=== PATIENT | male | born 1940 | race Caucasian/White ===

== ENCOUNTER 2017-10-01 09:48 | Emergency (ER) | payer MEDICARE ==
[2017-10-01] MEDS ORDERED: Morphine INJ* 4 MG/ML 1 ML SYRINGE (NEW SYRINGE VERSION) IV ONE (10:22)
[2017-10-01] MEDS ORDERED: Ondansetron INJ* 2 MG/ML VIAL IV ONE (10:22)
[2017-10-01] MEDS ORDERED: Albuterol/Ipratropium NEB.SOL* Albuterol 2.5 MG/Ipratropium 0.5 MG 3 ML INH ONE (10:23)
[2017-10-01] MEDS ORDERED: methylPREDNISolone 125 MG* 2 ML VIAL IV ONE (10:24)
--- NOTE | 2017-10-01 10:27 | RAD ---
HISTORY: Chest pain, shortness of breath COMPARISONS: September 05, 2016 VIEWS: 1: frontal portable view of the chest at 10:15 AM FINDINGS: LINES AND TUBES: None. CARDIOMEDIASTINAL SILHOUETTE: The cardiomediastinal silhouette is normal for portable technique. PLEURA: The costophrenic angles are sharp. No pleural abnormalities are noted. LUNG PARENCHYMA: There is stable linear pleuroparenchymal scarring of the left lung base. ABDOMEN: The upper abdomen is clear. There is no subphrenic gas. BONES AND SOFT TISSUES: Mild degenerative changes are noted. IMPRESSION: NO ACTIVE CARDIOPULMONARY DISEASE.
[2017-10-01 10:43] LABS: Hematocrit 42 % (42-52); Hemoglobin 14.2 g/dl (14.0-18.0); Mean Corpuscular HGB Conc 34 g/dl (31-36); Mean Corpuscular Hemoglobin 31 pg (27-31); Mean Corpuscular Volume 92 fL (80-94); Mean Platelet Volume 9.8 um3 (7.4-10.4); Platelet Count 238 10^3/ul (150-450); Red Blood Count 4.59 10^6/ul (4.0-5.4); Red Cell Distribution Width 13 % (10.5-15); White Blood Count 9.1 10^3/ul (3.5-10.8)
[2017-10-01] MEDS ORDERED: Albuterol/Ipratropium NEB.SOL* Albuterol 2.5 MG/Ipratropium 0.5 MG 3 ML ONE (10:44)
[2017-10-01 10:53] LABS: INR 0.79 (0.77-1.02)
[2017-10-01 11:04] LABS: EGFR Non-African American 62.5 (>60)
[2017-10-01 11:43] LABS: ABS Basophils 0 10^3/ul (0-0.2); ABS Eosinophils 0.4 10^3/ul (0-0.6); ABS Lymphocytes 0.7 10^3/ul (1.0-4.8); ABS Monocytes 1.1 10^3/ul (0-0.8); ABS Neutrophils 6.9 10^3/ul (1.5-7.7); ABS Nucleated RBC 0 10^3/ul; Eosinophil % 3.9 % (0-6); Lymphocyte % 7.9 % (25-47); Nucleated Red Blood Cells % 0.1
[2017-10-01] MEDS ORDERED: Iohexol 300* (CONTRAST) 10 ML SDV IV ONE (12:22)
--- NOTE | 2017-10-01 15:41 | RAD ---
INDICATION: Left lower quadrant tenderness. Diverticulitis/diverticulosis . COMPARISON: PET scan December 23, 2015 TECHNIQUE: Axial source images were obtained from the hemidiaphragms to the symphysis pubis following administration of oral and intravenous contrast. 94 mL Omnipaque 300 was utilized. Coronal and sagittal reconstructed images were acquired. Lung bases: There is basilar parenchymal scarring or atelectasis, unchanged. Liver: The liver is normal in size. There are no masses. There is no ductal dilatation. Gallbladder: There are calcified gallstones. There is no evidence of wall thickening or pericholecystic fluid. Spleen: The spleen is normal in size. There are no masses. Pancreas: There is no focal pancreatic mass or ductal dilatation. Adrenal glands: There is no evidence of adrenal mass. Kidneys: The kidneys are normal in size and position. There are prompt nephrograms and there is prompt excretion bilaterally. There are no renal parenchymal masses. There is no evidence of nephrolithiasis. Adenopathy: There is no evidence of adenopathy by size criteria. Fluid collections: There are no free or localized fluid collections. Vessels:There are atherosclerotic changes involving the aorta and iliac vessels. There is no focal aneurysm. The IVC appears normal. GI tract: There is a small to moderate sized hiatal hernia. The stomach and small bowel are otherwise unremarkable. The terminal ileum is normal. The appendix is visualized and appears normal. There is stool in the right colon. There are scant diverticula of the sigmoid and descending colon. There are no CT findings of acute diverticulitis. There are are no findings of obstruction are perforation. Pelvic organs: The prostate and seminal vesicles appear normal Bladder: There are no bladder masses. Abdominal and pelvic soft tissues: The extraperitoneal abdominal and pelvic soft tissues appear normal.. Osseous structures: There are no acute osseous findings. There is bone harvesting from the left iliac bone and there is evidence of prior lumbar fusion, unchanged. Other: None IMPRESSION: 1. Bibasilar scarring or atelectasis, unchanged. 2. Cholelithiasis. 3. Small to moderate-sized hiatal hernia. 4. Normal appendix. 5. Scattered diverticula. No CT evidence of acute diverticulitis.
[2017-10-01 15:46] LABS: Urine Appearance Clear; Urine Blood Negative (Negative); Urine Color Straw; Urine Ketones Negative (Negative); Urine Protein Negative (Negative); Urine Specific Gravity 1.005 (1.010-1.030); Urine Urobilinogen Negative (Negative)
[2017-10-01] MEDS ORDERED: Azithromycin TAB* 250 MG PO ONE (16:07)
--- NOTE | 2017-10-01 16:23 | ED ---
Mian Palm Julia, scribed for Timothy Freeman on 10/01/17 at 1022 . Abdominal Pain/Male - HPI Summary HPI Summary: This patient is a 77 year old M presenting to [facility] accompanied by his with a chief complaint of diffuse worsening abdominal, chest, and back pain since last night. Patient describes pain as spasms radiating from his shoulders into his abdomen. Patient reports SOB, cough, constipation, and dehydration. Patient denies diarrhea and fever. The patient rates the pain 8/10 in severity. Patient believes PNA may be returning. Patient is on at home O2. - History of Current Complaint Chief Complaint: EDAbdPain Stated Complaint: ABD PAIN, SOB Time Seen by Provider: 10/01/17 10:12 Hx Obtained From: Patient Onset/Duration: Sudden Onset, Lasting Hours Timing: Constant Pain Intensity: 8 Pain Scale Used: 0-10 Numeric Location: Diffuse Radiates: Yes Radiates to: Back, Flank, Chest, Other - shoulders Associated Signs And Symptoms: Positive: Cough, Chest Pain, Back Pain, Constipation. Negative: Fever, Diarrhea Similar Episode/Dx As:: PNA - Allergies/Home Medications Allergies/Adverse Reactions: Allergies Allergy/AdvReac Type Severity Reaction Status Date / Time No Known Allergies Allergy Verified 02/14/16 08:19 PMH/Surg Hx/FS Hx/Imm Hx Endocrine/Hematology History: Denies: Hx Diabetes Cardiovascular History: Denies: Hx Congestive Heart Failure, Hx Hypertension Respiratory History: Reports: Hx Asthma, Hx Chronic Obstructive Pulmonary Disease (COPD) - pt states he has had it for 10 years, Hx Pneumonia, Other Respiratory Problems/Disorders - HOME NEBULIZER GI History: Reports: Other GI Disorders - cdiff History: Reports: Hx Benign Prostatic Hyperplasia - has been taking flomax for over 10 years Denies: Hx Renal Disease Sensory History: Reports: Hx Contacts or Glasses, Hx Hearing Problem Opthamlomology History: Reports: Hx Contacts or Glasses Neurological History: Denies: Hx Dementia, Hx Developmental Delay, Hx Headaches, Hx Migraine, Hx Nerve Disease, Hx Seizures, Hx Spinal Cord Injury, Hx Transient Ischemic Attacks (TIA), Other Neuro Impairments/Disorders Psychiatric History: Reports: Hx Anxiety, Hx Depression - Pt states he has been feeling more depressed - Cancer History Cancer Type, Location and Year: Skin-multiple lesions Hx Chemotherapy: No - Surgical History Surgery Procedure, Year, and Place: L4-L5-S1 triple fusion approx 12 years ago in [place]. tonsillectomy Infectious Disease History: Yes Infectious Disease History: Reports: Hx Clostridium Difficile Denies: Traveled Outside the [place] in Last 30 Days - Family History Known Family History: Positive: None Family History: NON CONTRIBUTORY - Social History Alcohol Use: Daily Alcohol Amount: 1-2 beers/day Substance Use Type: Reports: None Hx Tobacco Use: Yes Smoking Status (MU): Former Smoker Type: Cigarettes, Smokeless Tobacco Amount Used/How Often: most of the time. pt states Have You Smoked in the Last Year: Yes Review of Systems Positive: Other - dehydration. Negative: Fever Positive: Chest Pain Positive: Shortness Of Breath, Cough Gastrointestinal: Other - constipation Negative: Diarrhea Positive: flank pain Positive: Myalgia - shoulder pain and back pain All Other Systems Reviewed And Are Negative: Yes Physical Exam - Summary Physical Exam Summary: Appearance: Well appearing, no pain distress Skin: warm, dry, reflects adequate perfusion Head/face: normal Eyes: EOMI, GEOVANY ENT: normal Neck: supple, non-tender Respiratory: CTA, breath sounds present Cardiovascular: RRR, pulses symmetrical Abdomen: soft, diffuse abdominal tenderness Bowel: present Musculoskeletal: normal, strength/ROM intact Neuro: normal, sensory motor intact, A&Ox3 Triage Information Reviewed: Yes Vital Signs On Initial Exam: Initial Vitals Temp Pulse Resp BP Pulse Ox 98.1 F 101 28 154/76 93 10/01/17 09:52 10/01/17 09:52 10/01/17 09:52 10/01/17 09:52 10/01/17 09:52 Vital Signs Reviewed: Yes Diagnostics - Vital Signs Vital Signs Temp Pulse Resp BP Pulse Ox 10/01/17 09:52 98.1 F 101 28 154/76 93 - Laboratory Lab Results: Lab Results 10/01/17 10/01/17 10/01/17 Range/Units 10:31 10:31 10:31 WBC (3.5-10.8) 10^3/ul RBC (4.0-5.4) 10^6/ul Hgb (14.0-18.0) g/dl Hct (42-52) % MCV (80-94) fL MCH (27-31) pg MCHC (31-36) g/dl RDW (10.5-15) % Plt Count (150-450) 10^3/ul MPV (7.4-10.4) um3 Neut % (Auto) (38-83) % Lymph % (Auto) (25-47) % [place] % (Auto) (0-7) % Eos % (Auto) (0-6) % Baso % (Auto) (0-2) % Absolute Neuts (auto) (1.5-7.7) 10^3/ul Absolute Lymphs (auto) (1.0-4.8) 10^3/ul Absolute Monos (auto) (0-0.8) 10^3/ul Absolute Eos (auto) (0-0.6) 10^3/ul Absolute Basos (auto) (0-0.2) 10^3/ul Absolute Nucleated RBC 10^3/ul Nucleated RBC % INR (Anticoag Therapy) 0.79 (0.77-1.02) APTT 34.1 (26.0-36.3) seconds D-Dimer, Quantitative 210 (Less Than 230) ng/mL Patient Temperature ABG pH (7.35-7.45) ABG pH (Temp Correct) ABG pCO2 (35-45) mmHg ABG pCO2 (Temp Corrct ABG pO2 (80-100) mmHg ABG pO2 (Temp Correct ABG HCO3 (19-31) mmol/L ABG O2 Saturation (95-98) % ABG Base Excess (-2.0-2.0) Respiration Rate O2 Delivery Device Ventilator Type Vent Mode FiO2 Inspiratory Time PEEP Pressure Support Pressure Control EPAP IPAP BiPAP Sodium 135 (133-145) mmol/L Potassium 4.2 (3.5-5.0) mmol/L Chloride 102 (101-111) mmol/L Carbon Dioxide 27 (22-32) mmol/L Anion Gap 6 (2-11) mmol/L BUN 16 (6-24) mg/dL Creatinine 1.14 (0.67-1.17) mg/dL Est GFR ( Amer) 80.3 (>60) Est GFR (Non-Af Amer) 62.5 (>60) BUN/Creatinine Ratio 14.0 (8-20) Glucose 99 (70-100) mg/dL Lactic Acid (0.5-2.0) mmol/L Calcium 9.6 (8.6-10.3) mg/dL Magnesium 2.1 (1.9-2.7) mg/dL Total Bilirubin 0.80 (0.2-1.0) mg/dL AST 17 (13-39) U/L ALT 12 (7-52) U/L Alkaline Phosphatase 70 (34-104) U/L Total Creatine Kinase 63 (10-223) U/L CK-MB (CK-2) 1.9 (0.6-6.3) ng/mL Troponin I 0.00 (<0.04) ng/mL C-Reactive Protein 17.00 H (< 5.00) mg/L B-Natriuretic Peptide 36 ( - 100) pg/mL Total Protein 7.1 (6.4-8.9) g/dL Albumin 4.1 (3.2-5.2) g/dL Globulin 3.0 (2-4) g/dL Albumin/Globulin Ratio 1.4 (1-3) Lipase 14 (11.0-82.0) U/L TSH 1.98 (0.34-5.60) mcIU/mL Urine Color Urine Appearance Urine pH (5-9) Ur Specific [place] (1.010-1.030) Urine Protein (Negative) Urine Ketones (Negative) Urine Blood (Negative) Urine Nitrate (Negative) Urine Bilirubin (Negative) Urine Urobilinogen (Negative) Ur Leukocyte Esterase (Negative) Urine Glucose (Negative) Influenza A (Rapid) (Negative) Influenza B (Rapid) (Negative) 10/01/17 10/01/17 10/01/17 Range/Units 10:31 10:31 10:55 WBC 9.1 (3.5-10.8) 10^3/ul RBC 4.59 (4.0-5.4) 10^6/ul Hgb 14.2 (14.0-18.0) g/dl Hct 42 (42-52) % MCV 92 (80-94) fL MCH 31 (27-31) pg MCHC 34 (31-36) g/dl RDW 13 (10.5-15) % Plt Count 238 (150-450) 10^3/ul MPV 9.8 (7.4-10.4) um3 Neut % (Auto) 76.1 (38-83) % Lymph % (Auto) 7.9 L (25-47) % [place] % (Auto) 11.9 H (0-7) % Eos % (Auto) 3.9 (0-6) % Baso % (Auto) 0.2 (0-2) % Absolute Neuts (auto) 6.9 (1.5-7.7) 10^3/ul Absolute Lymphs (auto) 0.7 L (1.0-4.8) 10^3/ul Absolute Monos (auto) 1.1 H (0-0.8) 10^3/ul Absolute Eos (auto) 0.4 (0-0.6) 10^3/ul Absolute Basos (auto) 0 (0-0.2) 10^3/ul Absolute Nucleated RBC 0 10^3/ul Nucleated RBC % 0.1 INR (Anticoag Therapy) (0.77-1.02) APTT (26.0-36.3) seconds D-Dimer, Quantitative (Less Than 230) ng/mL Patient Temperature Not Reportable ABG pH 7.37 (7.35-7.45) ABG pH (Temp Correct) Not Reportable ABG pCO2 46 H (35-45) mmHg ABG pCO2 (Temp Corrct Not Reportable ABG pO2 99 (80-100) mmHg ABG pO2 (Temp Correct Not Reportable ABG HCO3 25.6 (19-31) mmol/L ABG O2 Saturation 99.1 H (95-98) % ABG Base Excess 0.9 (-2.0-2.0) Respiration Rate Not Reportable O2 Delivery Device nasal cannula 2lpm Ventilator Type Not Reportable Vent Mode Not Reportable FiO2 Not Reportable Inspiratory Time Not Reportable PEEP Not Reportable Pressure Support Not Reportable Pressure Control Not Reportable EPAP Not Reportable IPAP Not Reportable BiPAP Not Reportable Sodium (133-145) mmol/L Potassium (3.5-5.0) mmol/L Chloride (101-111) mmol/L Carbon Dioxide (22-32) mmol/L Anion Gap (2-11) mmol/L BUN (6-24) mg/dL Creatinine (0.67-1.17) mg/dL Est GFR ( Amer) (>60) Est GFR (Non-Af Amer) (>60) BUN/Creatinine Ratio (8-20) Glucose (70-100) mg/dL Lactic Acid 1.0 (0.5-2.0) mmol/L Calcium (8.6-10.3) mg/dL Magnesium (1.9-2.7) mg/dL Total Bilirubin (0.2-1.0) mg/dL AST (13-39) U/L ALT (7-52) U/L Alkaline Phosphatase (34-104) U/L Total Creatine Kinase (10-223) U/L CK-MB (CK-2) (0.6-6.3) ng/mL Troponin I (<0.04) ng/mL C-Reactive Protein (< 5.00) mg/L B-Natriuretic Peptide ( - 100) pg/mL Total Protein (6.4-8.9) g/dL Albumin (3.2-5.2) g/dL Globulin (2-4) g/dL Albumin/Globulin Ratio (1-3) Lipase (11.0-82.0) U/L TSH (0.34-5.60) mcIU/mL Urine Color Urine Appearance Urine pH (5-9) Ur Specific [place] (1.010-1.030) Urine Protein (Negative) Urine Ketones (Negative) Urine Blood (Negative) Urine Nitrate (Negative) Urine Bilirubin (Negative) Urine Urobilinogen (Negative) Ur Leukocyte Esterase (Negative) Urine Glucose (Negative) Influenza A (Rapid) (Negative) Influenza B (Rapid) (Negative) 10/01/17 10/01/17 Range/Units 11:45 14:54 WBC (3.5-10.8) 10^3/ul RBC (4.0-5.4) 10^6/ul Hgb (14.0-18.0) g/dl Hct (42-52) % MCV (80-94) fL MCH (27-31) pg MCHC (31-36) g/dl RDW (10.5-15) % Plt Count (150-450) 10^3/ul MPV (7.4-10.4) um3 Neut % (Auto) (38-83) % Lymph % (Auto) (25-47) % [place] % (Auto) (0-7) % Eos % (Auto) (0-6) % Baso % (Auto) (0-2) % Absolute Neuts (auto) (1.5-7.7) 10^3/ul Absolute Lymphs (auto) (1.0-4.8) 10^3/ul Absolute Monos (auto) (0-0.8) 10^3/ul Absolute Eos (auto) (0-0.6) 10^3/ul Absolute Basos (auto) (0-0.2) 10^3/ul Absolute Nucleated RBC 10^3/ul Nucleated RBC % INR (Anticoag Therapy) (0.77-1.02) APTT (26.0-36.3) seconds D-Dimer, Quantitative (Less Than 230) ng/mL Patient Temperature ABG pH (7.35-7.45) ABG pH (Temp Correct) ABG pCO2 (35-45) mmHg ABG pCO2 (Temp Corrct ABG pO2 (80-100) mmHg ABG pO2 (Temp Correct ABG HCO3 (19-31) mmol/L ABG O2 Saturation (95-98) % ABG Base Excess (-2.0-2.0) Respiration Rate O2 Delivery Device Ventilator Type Vent Mode FiO2 Inspiratory Time PEEP Pressure Support Pressure Control EPAP IPAP BiPAP Sodium (133-145) mmol/L Potassium (3.5-5.0) mmol/L Chloride (101-111) mmol/L Carbon Dioxide (22-32) mmol/L Anion Gap (2-11) mmol/L BUN (6-24) mg/dL Creatinine (0.67-1.17) mg/dL Est GFR ( Amer) (>60) Est GFR (Non-Af Amer) (>60) BUN/Creatinine Ratio (8-20) Glucose (70-100) mg/dL Lactic Acid (0.5-2.0) mmol/L Calcium (8.6-10.3) mg/dL Magnesium (1.9-2.7) mg/dL Total Bilirubin (0.2-1.0) mg/dL AST (13-39) U/L ALT (7-52) U/L Alkaline Phosphatase (34-104) U/L Total Creatine Kinase (10-223) U/L CK-MB (CK-2) (0.6-6.3) ng/mL Troponin I (<0.04) ng/mL C-Reactive Protein (< 5.00) mg/L B-Natriuretic Peptide ( - 100) pg/mL Total Protein (6.4-8.9) g/dL Albumin (3.2-5.2) g/dL Globulin (2-4) g/dL Albumin/Globulin Ratio (1-3) Lipase (11.0-82.0) U/L TSH (0.34-5.60) mcIU/mL Urine Color Straw Urine Appearance Clear Urine pH 5.0 (5-9) Ur Specific [place] 1.005 L (1.010-1.030) Urine Protein Negative (Negative) Urine Ketones Negative (Negative) Urine Blood Negative (Negative) Urine Nitrate Negative (Negative) Urine Bilirubin Negative (Negative) Urine Urobilinogen Negative (Negative) Ur Leukocyte Esterase Negative (Negative) Urine Glucose Negative (Negative) Influenza A (Rapid) Negative (Negative) Influenza B (Rapid) Negative (Negative) Result Diagrams: 10/01/17 10:31 10/01/17 10:31 Lab Statement: Any lab studies that have been ordered have been reviewed, and results considered in the medical decision making process. - Radiology CXR Radiology Interpretation Completed By: Radiologist - NO ACTIVE CARDIOPULMONARY DISEASE. ED Physician has reviewed this report. - CT A/P CT Interpretation Completed By: Radiologist - 1. Bibasilar scarring or atelectasis, unchanged. 2. Cholelithiasis. 3. Small to moderate-sized hiatal hernia. 4. Normal appendix. 5. Scattered diverticula. No CT evidence of acute diverticulitis. ED Physician has reviewed this report. - EKG 1047 Cardiac Rate: NL - at 78 BPM EKG Rhythm: Sinus Rhythm EKG Interpretation: no acute changes Re-Evaluation - Re-Evaluation 1 Re-Evaluation Time: 16:00 Comment: Results discussed with pt. Pt will be discharged. Abdominal Pain Fem Course/Dx - Course Course Of Treatment: Patient presents with diffuse worsening abdominal, chest, and back pain since last night. Patient describes pain as spasms radiating from his shoulders into his abdomen. Patient reports SOB, cough, constipation, and dehydration. CXR and EKG are of no acute concern. Lab results are unremarkable. A/P CT has no acute changes. Pt is given two nebulizer treatments. Pt is given Zitromax, Morphine, Zofran, and Solu-Medrol. Patient will be discharged. - Diagnoses Differential Diagnosis/HQI/PQRI: Appendicitis, Diverticulitis, Ureteral Stone, Urinary Tract Infection, Other - copd Provider Diagnoses: COPD exacerbation, Pain, abdominal, nonspecific, Bronchitis Discharge - Sign-Out/Discharge Documenting (check all that apply): Discharge - Discharge Plan Condition: Stable Disposition: HOME Prescriptions: Azithromycin TAB* [Zithromax TAB (Z-ZULEMA) 250 mg #6 tabs] 250 mg PO DAILY #4 tab methylPREDNISolone [Medrol Dosepak 4 MG*] 0 mg PO .SEE ZULEMA INSTRUCTION #1 tab Patient Education Materials: Acute Bronchitis (ED), COPD (Chronic Obstructive Pulmonary Disease) (ED) Referrals: Gavin Duncan MD [Primary Care Provider] - 3 Days (Follow up with your Primary Care provider.) - Billing Disposition and Condition Condition: STABLE Disposition: HOME The documentation as recorded by the Mian dumont Julia accurately reflects the service I personally performed and the decisions made by , Timothy Freeman.
[2017-10-01 16:52] VITALS: BP 169/92
== END 2017-10-01 16:50 | disposition home or self-care (01) ==
LOC: ED 09:48
DX: J44.1 Chronic obstructive pulmonary disease with (acute) exacerbation (principal); J40 Bronchitis, not specified as acute or chronic; R05 Cough; R07.9 Chest pain, unspecified; M54.9 Dorsalgia, unspecified; K59.00 Constipation, unspecified; R10.9 Unspecified abdominal pain; Z87.891 Personal history of nicotine dependence
CPT/HCPCS: 36415; 36600; 71045; 74177; 80053; 81003; 82550; 82553; 82803; 83605; 83690; 83735; 83880; 84443; 84484; 85025; 85379; 85610; 85730; 86140; 87502; 93005; 94640; 96374; 96375; 99282; A9270-GY; J2270; J2405; J2930; Q9967

== ENCOUNTER 2018-01-17 10:51 | Inpatient (IN) | payer MEDICARE ==
[2018-01-17] MEDS ORDERED: Ibuprofen TAB* 800 MG PO ONE ×2 (11:08→11:11)
--- NOTE | 2018-01-17 11:10 | ED ---
Respiratory - HPI Summary HPI Summary: 77 y/o male BIBA c/o difficulty breathing starting this morning. SOB not alleviated by anything. Denies PMHx AFIB. Associated sx: CP and fever starting this morning, mild productive cough with yellowish excretion. 2 breathing treatments this morning. PMHx PNA. - History of Current Complaint Chief Complaint: EDRespiratoryDistress Stated Complaint: DIFF BREATHING Hx Obtained From: Patient Onset/Duration: Lasting Hours Pain Intensity: 0 Character: Cough (Productive) Sputum Amount: Small Sputum Color: Yellow Alleviating Factor(s): Nothing Associated Signs and Symptoms: Fever, SOB, Chest Pain - Allergy/Home Medications Allergies/Adverse Reactions: Allergies Allergy/AdvReac Type Severity Reaction Status Date / Time No Known Allergies Allergy Verified 02/14/16 08:19 Home Medications: Home Medications Albuterol HFA INHALER* [Ventolin HFA Inhaler*] 2 puff INH Q6H PRN 01/17/18 [ History Confirmed 01/17/18] Fluticasone-Salmeterol 500-50* [Advair Diskus 500-50*] 1 puff INH BID 01/17/18 [ History Confirmed 01/17/18] Montelukast Sodium TAB* [Singulair TAB*] 10 mg PO DAILY 01/17/18 [History Confirmed 01/17/18] Tamsulosin CAP* [Flomax CAP*] 0.4 mg PO DAILY 01/17/18 [History Confirmed ] PMH/Surg Hx/FS Hx/Imm Hx Previously Healthy: No Endocrine/Hematology History: Denies: Hx Diabetes Cardiovascular History: Denies: Hx Congestive Heart Failure, Hx Hypertension Respiratory History: Reports: Hx Asthma, Hx Chronic Obstructive Pulmonary Disease (COPD) - pt states he has had it for 10 years, Hx Pneumonia, Other Respiratory Problems/Disorders - HOME NEBULIZER GI History: Reports: Other GI Disorders - cdiff History: Reports: Hx Benign Prostatic Hyperplasia - has been taking flomax for over 10 years Denies: Hx Renal Disease Sensory History: Reports: Hx Contacts or Glasses, Hx Hearing Problem Opthamlomology History: Reports: Hx Contacts or Glasses Neurological History: Denies: Hx Dementia, Hx Developmental Delay, Hx Headaches, Hx Migraine, Hx Nerve Disease, Hx Seizures, Hx Spinal Cord Injury, Hx Transient Ischemic Attacks (TIA), Other Neuro Impairments/Disorders Psychiatric History: Reports: Hx Anxiety, Hx Depression - Pt states he has been feeling more depressed - Cancer History Cancer Type, Location and Year: Skin-multiple lesions Hx Chemotherapy: No - Surgical History Surgery Procedure, Year, and Place: L4-L5-S1 triple fusion approx 12 years ago in [place]. tonsillectomy Infectious Disease History: No Infectious Disease History: Reports: Hx Clostridium Difficile Denies: Traveled Outside the in Last 30 Days - Family History Known Family History: Positive: None Family History: NON CONTRIBUTORY - Social History Alcohol Use: Daily Alcohol Amount: 1-2 beers/day Hx Substance Use: No Substance Use Type: Reports: None Hx Tobacco Use: Yes Smoking Status (MU): Former Smoker Type: Cigarettes, Smokeless Tobacco Amount Used/How Often: most of the time. pt states Have You Smoked in the Last Year: Yes Review of Systems Positive: Fever. Negative: Chills Negative: Erythema Negative: Sore Throat Positive: Chest Pain. Negative: Palpitations Positive: Shortness Of Breath, Cough Negative: Abdominal Pain, Vomiting, Nausea Negative: dysuria, hematuria Negative: Myalgia, Edema Negative: Rash Neurological: Other - No dizziness All Other Systems Reviewed And Are Negative: Yes Physical Exam - Summary Physical Exam Summary: Constitutional: Well-developed, Well-nourished, Alert. (-) Distressed Skin: Warm, Dry. Hot to touch. HENT: Normocephalic; Atraumatic Eyes: Conjunctiva normal Neck: Musculoskeletal ROM normal neck. (-) JVD, (-) Stridor, (-) Tracheal deviation Cardio: Rhythm regular, tachycardic, Heart sounds normal; Intact distal pulses; The pedal pulses are 2+ and symmetric. Radial pulses are 2+ and symmetric. (-) Murmur Pulmonary/Chest wall: Effort normal. (-) Respiratory distress, (-) Wheezes, (-) Rales. Crackles at L lower lung base. Abd: Soft, (-), epigastric tenderness, (-) Distension, (-) Guarding, (-) Rebound Musculoskeletal: (-) Edema Lymph: (-) Cervical adenopathy Neuro: Alert, Oriented x3 Psych: Mood and affect Normal Triage Information Reviewed: Yes Vital Signs On Initial Exam: Initial Vitals Temp Pulse Resp BP Pulse Ox 101.3 F 128 26 157/72 97 01/17/18 10:59 07/12/18 10:59 01/17/18 10:59 01/17/18 10:59 01/17/18 10:59 Vital Signs Reviewed: Yes Diagnostics - Vital Signs Vital Signs Temp Pulse Resp BP Pulse Ox 01/17/18 10:59 101.3 F 128 26 157/72 97 - Laboratory Result Diagrams: 01/17/18 11:31 01/17/18 11:31 Lab Statement: Any lab studies that have been ordered have been reviewed, and results considered in the medical decision making process. - Radiology CXR Xray Interpretation: Positive (See Comments) - L upper lobe infiltrate Radiology Interpretation Completed By: ED Physician, Radiologist - SUGGESTION OF LEFT UPPER LOBE PNEUMONIA. - EKG 1 EKG Interpretation: 11:25 - Sinus tach @ 128 bpm. No STEMI Re-Evaluation - Re-Evaluation 1 Re-Evaluation Time: 13:09 Change: Unchanged - Pt moved to use bathroom. Very SOB. Requesting something for sleep Disposition - Course Course Of Treatment: Tachycardia likely related to fever and albuterol use @ home. No indication for NIPPV. - Diagnoses Provider Diagnoses: Sepsis, Community acquired pneumonia - Physician Notifications Discussed Care Of Patient With: Carlitos Pa Time Discussed With Above Provider: 12:15 Instructed by Provider To: Admit As Inpatient Discharge - Discharge Plan Condition: Fair Disposition: ADMITTED TO [facility] Referrals: Gavin Duncan MD [Primary Care Provider] -
[2018-01-17] MEDS ORDERED: Levofloxacin 750 MG IVPREMIX(* 750 MG/150 ML BAG IVPB ONE (11:11)
[2018-01-17] MEDS ORDERED: Cefepime(*) 2 GM in NS 0.9% 50 ML* 50 ML IVPB ONE (11:11)
[2018-01-17] MEDS ORDERED: NS 0.9% 1000 ML*IV.FLUID IV ONE (11:11)
[2018-01-17] MEDS ORDERED: methylPREDNISolone 125 MG* 2 ML VIAL IV ONE (11:15)
[2018-01-17] MEDS ORDERED: Levalbuterol 1.25MG/0.5ML NEB INH ONE ×2 (11:15→13:08)
[2018-01-17 11:40] LABS: ABS Basophils 0.1 10^3/ul (0-0.2); ABS Eosinophils 0 10^3/ul (0-0.6); ABS Lymphocytes 0.4 10^3/ul (1.0-4.8); ABS Monocytes 0.9 10^3/ul (0-0.8); ABS Neutrophils 17.1 10^3/ul (1.5-7.7); ABS Nucleated RBC 0 10^3/ul; Eosinophil % 0.2 % (0-6); Hematocrit 43 % (42-52); Hemoglobin 14.4 g/dl (14.0-18.0); Lymphocyte % 2.2 % (25-47); Mean Corpuscular HGB Conc 33 g/dl (31-36); Mean Corpuscular Hemoglobin 31 pg (27-31); Mean Corpuscular Volume 92 fL (80-94); Mean Platelet Volume 8.6 um3 (7.4-10.4); Nucleated Red Blood Cells % 0.1; Platelet Count 281 10^3/ul (150-450); Red Blood Count 4.71 10^6/ul (4.00-5.40); Red Cell Distribution Width 13 % (10.5-15); White Blood Count 18.5 10^3/ul (3.5-10.8)
[2018-01-17 11:52] LABS: INR 0.82 (0.77-1.02)
[2018-01-17 11:58] LABS: EGFR Non-African American 67.9 (>60)
--- NOTE | 2018-01-17 12:21 | RAD ---
Indication: Sepsis. Single frontal view of the chest performed at 1200 hours was reviewed. Comparison is made with previous exam dated December 12, 2017. There is left upper lobe airspace disease consistent with left upper lobe pneumonia. There may be a small left pleural effusion. Right lung field is clear. IMPRESSION: SUGGESTION OF LEFT UPPER LOBE PNEUMONIA.
[2018-01-17] MEDS ORDERED: NS 0.9% 50 ML* 0 ML ONE (12:34)
[2018-01-17] MEDS ORDERED: Cefepime 2 GM in Dextrose(*) 2 GM/50 ML BAG IV ONE ×2 (12:35→12:37)
[2018-01-17] MEDS ORDERED: Azithromycin TAB* 250 MG PO ONE (13:02)
[2018-01-17] MEDS ORDERED: Albuterol HFA INHALER* 8 gm MDI INH PRN (13:06)
[2018-01-17] MEDS ORDERED: ALPRAZolam TAB* 0.25 MG PO ONE (13:08)
[2018-01-17] MEDS ORDERED: Albuterol/Ipratropium NEB.SOL* Albuterol 2.5 MG/Ipratropium 0.5 MG 3 ML ONE (13:16)
[2018-01-17] MEDS: Albuterol/Ipratropium NEB.SOL* Albuterol 2.5 MG/Ipratropium 0.5 MG 3 ML INH PRN (13:18)
[2018-01-17 13:24] LABS: Urine Appearance Clear; Urine Blood Negative (Negative); Urine Color Yellow; Urine Ketones Negative (Negative); Urine Protein Negative (Negative); Urine Urobilinogen Negative (Negative)
[2018-01-17] MEDS: Heparin VIAL(*) 5000 UNITS/ML VIAL (FIVE THOUSAND) SUBCUT SCH ×2 (15:40→21:15)
[2018-01-17] MEDS: NS 0.9% 1000 ML* 1,000 ML IV SCH (15:40)
--- NOTE | 2018-01-17 16:38 | HP ---
CC: Dr. Duncan * [facility] MEDICINE HISTORY AND PHYSICAL: DATE OF ADMISSION: 01/17/18 PRIMARY CARE PHYSICIAN: Dr. Duncan. ATTENDING PHYSICIAN: Dr. Yasmany Pa * (dictation provided by Cyndie Fall NP). CHIEF COMPLAINT: Shortness of breath and chills. HISTORY OF PRESENT ILLNESS: Mr. Hoyt is a 77-year-old male with a past medical history of COPD, on 2 liters nasal cannula at home, who presents to the hospital today with the onset of chills and shortness of breath this morning. Mr. Hoyt states that he was out yesterday by the [place] at [employer]. While there, he felt very cold, even though it was a warm day. He did not have any other symptoms associated with this. He went home and slept all through the night. When he awoke at 7:00 a.m., he again was cold, but now had shaking chills. This was now associated with significant severe shortness of breath. He had a nebulizer treatment, but despite this remained severely short of breath and therefore ultimately called EMS and was brought to the hospital. He had no report of fever at home, but he did have a fever on arrival here to 101.3. He denies any other symptoms. He has had no chest pain. He has had no worsening cough. He has had no nausea, vomiting, diarrhea, or abdominal pain. On review of his records from patient's primary care physician, Dr. Duncan, I do see that he was there for an appointment on 12/11/17, at which he had increased productive cough and dyspnea on exertion and was suspected to have a COPD exacerbation. He was started on steroids and antibiotics. consisting of prednisone 20 mg and doxycycline 100 mg p.o. twice daily. He states that he did complete these medications and thinks that he did improve. In the emergency room, the patient was initially on 6 L of nasal cannula. He is now back on home 2 liters nasal cannula. His labs show a white blood cell count of 18.5. Again, he is afebrile to 101.3. He is tachypneic with a respiratory rate running from 20 to 40. He had a chest x-ray that showed concern for a left lower lobe pneumonia. I will note that the patient has had some abnormalities in that left lower lobe documented on CT 09/25/17 described as the following: Volume loss left lung field with scarring in the left lower lobe and atelectasis in the lingual unchanged from prior comparison there was in 2017. However, these chest xray findings appear to be new. The patient received intravenous antibiotics and IV fluids per the sepsis protocol. He also received breathing treatments and methylprednisolone. He is feeling better but he remains very weak and has dyspnea on exertion. PAST MEDICAL HISTORY: 1. COPD, on 2 liters nasal cannula at home. 2. Depression. 3. BPH. PAST SURGICAL HISTORY: 1. History of back surgery. 2. Tonsillectomy. MEDICATIONS: 1. Albuterol inhaler p.r.n. 2. Fluticasone/salmeterol 500/50 one puff inhale b.i.d. 3. Montelukast 10 mg p.o. daily. 4. Tamsulosin 0.4 mg p.o. daily. 5. 2 liters of nasal cannula routinely. ALLERGIES: No known drug allergies. FAMILY HISTORY: The patient reports his mother related to Alzheimer's and dad after a long history of rheumatoid arthritis from a heart attack at age 65. SOCIAL HISTORY: The patient is a former smoker. He quit 4 years ago. He drinks alcohol occasionally. No report of drug use. He states his ex-, Stephanie Ulloa, will be his healthcare proxy. REVIEW OF SYSTEMS: A 14-point review of systems was completed with Mr. Hoyt and all those not mentioned above were negative. PHYSICAL EXAMINATION GENERAL: Mr. Hoyt is lying in the bed. He is in no acute distress. His son is at the bedside. He is breathing easily, though he is a bit tachypneic and is able to speak in complete sentences. VITAL SIGNS: Temperature on arrival 101.3, heart rate 117, respiratory rate 37 , O2 saturation 98% on 2 liters nasal cannula. Blood pressure 115/72. LUNGS: Clear to auscultation bilaterally. There is no accessory muscle use. He has good aeration. HEART: S1, S2. No murmur, rub, or gallop and regular. ABDOMEN: Soft with some generalized abdominal tenderness to palpation. Bowel sounds are positive. EXTREMITIES: No cyanosis. No edema. NEURO: He is alert. He is oriented x3. He moves all extremities equally. There is no facial asymmetry or focal weakness. Extraocular movements are intact. SKIN: Intact. DIAGNOSTIC STUDIES/LAB DATA: Sodium 138, potassium 4.2, chloride 102, serum bicarbonate 26, BUN 12, creatinine 1.06, glucose 82. CRP is 5.53. WBC 18.5, hemoglobin 14.4, hematocrit 43, platelet count 281. INR is 0.82. Chest x-ray shows suggestion of left lower lobe pneumonia. ASSESSMENT AND PLAN: Mr. Hoyt is a 77-year-old male with a past medical history of chronic obstructive pulmonary disease, on 2 liters nasal cannula at home, who presents today to the hospital with chills, shortness of breath, now with fever, leukocytosis, and question of left lower lobe pneumonia. Our plans are for observation in the hospital for the following. 1. Sepsis with pneumonia: The patient has an elevated white blood cell count and tachypnea as well as fever consistent sepsis. He does not meet criteria for severe sepsis at this time. He is on his home 2 liters nasal cannula. The remainder of his labs are unremarkable. The chest x-ray shows concern for a left lower lobe infiltrate. He does have a known history of left lower lobe long field volume loss and atelectasis with scarring. However, on review, there is a clear new density in the left mid field. Plan to treat with ceftriaxone and azithromycin for pneumonia community- acquired. He is not wheezing at this point, but given his history of chronic obstructive pulmonary disease and recent exacerbation, we will treat with 40 mg prednisone daily and titrate once he is feeling better. Blood cultures have been sent. Lactic acid is normal. 2. Chronic obstructive pulmonary disease. Plan to treat with prednisone as per above for pneumonia. Again, he is not actively wheezing at this time. Plan to continue his home Singulair, Advair. He will have Duo nebulizers available p.r.n., and we will titrate oxygen as appropriate. He is now on his home dose. 3. Abdominal pain: The patient's abdomen is tender on palpation. In reviewing the record, I can see that the patient was complaining of similar pain at least as far back of November, when he saw Dr. Palumbo and at that point, at least he was attributing it to prednisone. Today, he relates that he has had generalized tenderness in his abdomen since he had two bouts of cdiff colitis. I see no focal tenderness. He has had no diarrhea. He will have a regular diet and we will continue to monitor closely. 4. Benign prostatic hypertrophy. Continue Flomax. 5. Code status is DNR/DNI. A MOLST form has been completed with him and with his son at the bedside. 6. Disposition to medical floor. TIME SPENT: Approximately 60 minutes were spent on the admission of this patient, more than half time spent with the patient at the bedside reviewing the events leading up to this hospitalization, performing the physical examination, and reviewing the plan of care. CYNDIE FALL NP [id number]/CPS #: [id number] YAMINI
[2018-01-17] MEDS: Albuterol/Ipratropium NEB.SOL* Albuterol 2.5 MG/Ipratropium 0.5 MG 3 ML INH SCH (20:13)
[2018-01-17] MEDS: Mometasone/Formoter 200/5 MDI INH SCH (20:14)
[2018-01-17] MEDS: Acetaminophen TAB* 325 MG PO PRN (21:16)
[2018-01-17] MEDS: traMADol TAB* 50 MG PO PRN (21:16)
[2018-01-18] MEDS: NS 0.9% 1000 ML* 1,000 ML IV SCH (01:42)
[2018-01-18] MEDS: Heparin VIAL(*) 5000 UNITS/ML VIAL (FIVE THOUSAND) SUBCUT SCH ×3 (05:50→21:14)
[2018-01-18 07:01] LABS: Hematocrit 34 % (42-52); Hemoglobin 11.4 g/dl (14.0-18.0); Mean Corpuscular HGB Conc 33 g/dl (31-36); Mean Corpuscular Hemoglobin 31 pg (27-31); Mean Corpuscular Volume 92 fL (80-94); Platelet Count 202 10^3/ul (150-450); Red Blood Count 3.73 10^6/ul (4.00-5.40); Red Cell Distribution Width 13 % (10.5-15)
[2018-01-18] MEDS: Albuterol/Ipratropium NEB.SOL* Albuterol 2.5 MG/Ipratropium 0.5 MG 3 ML INH SCH ×3 (07:02→19:20)
[2018-01-18] MEDS: Mometasone/Formoter 200/5 MDI INH SCH ×2 (07:03→19:20)
[2018-01-18 07:38] LABS: ABS Basophils 0.1 10^3/ul (0-0.2); ABS Eosinophils 0 10^3/ul (0-0.6); ABS Lymphocytes 0.7 10^3/ul (1.0-4.8); ABS Monocytes 1.6 10^3/ul (0-0.8); ABS Neutrophils 28.6 10^3/ul (1.5-7.7); ABS Nucleated RBC 0 10^3/ul; Eosinophil % 0 % (0-6); Lymphocyte % 2.2 % (25-47); Nucleated Red Blood Cells % 0
--- NOTE | 2018-01-18 08:55 | PN ---
Subjective Date of Service: 01/18/18 Interval History: Cough continues +SOB. Feels no improvement Had episode of abdominal pain radiating to right shoulder overnight that improved with warm compress Feels weak/fatigued Objective Active Medications: Acetaminophen (Tylenol Tab*) 650 mg PO Q6H PRN PRN Reason: pain/fever Last Admin: 01/17/18 21:16 Dose: 650 mg Albuterol (Ventolin Hfa Inhaler*) 2 puff INH Q6H PRN PRN Reason: SOB/WHEEZING Albuterol/Ipratropium (Duoneb (Albuterol 2.5 Mg/Ipratropium 0.5 Mg)) 1 neb INH Q4H PRN PRN Reason: SOB/WHEEZING Last Admin: 01/17/18 13:18 Dose: 1 neb Albuterol/Ipratropium (Duoneb (Albuterol 2.5 Mg/Ipratropium 0.5 Mg)) 1 neb INH TID [facility] Last Admin: 01/18/18 07:02 Dose: 1 neb Azithromycin (Zithromax Tab*) 250 mg PO DAILY [facility] Heparin Sodium (Porcine) (Heparin Vial(*)) 5,000 units SUBCUT Q8HR [facility] Last Admin: 01/18/18 05:50 Dose: 5,000 units Ceftriaxone Sodium 1,000 mg/ (Sodium Chloride) 50 mls @ 200 mls/hr IVPB Q24H [facility] Mometasone Furoate/Formoterol Fumar (Dulera 200/5 Mdi*) 1 puff INH BID [facility] Last Admin: 01/18/18 07:03 Dose: 1 puff Montelukast Sodium (Singulair Tab*) 10 mg PO DAILY [facility] Tamsulosin HCl (Flomax Cap*) 0.4 mg PO DAILY [facility] Tramadol HCl (Ultram*) 50 mg PO Q6H PRN PRN Reason: PAIN Last Admin: 01/17/18 21:16 Dose: 50 mg Vital Signs - 8 hr 01/18/18 01/18/18 01/18/18 01:46 04:13 04:22 Temperature 98.1 F Pulse Rate 78 67 Respiratory 18 22 Rate Blood Pressure 119/42 124/62 (mmHg) O2 Sat by Pulse 97 98 Oximetry 01/18/18 01/18/18 01/18/18 05:56 06:00 07:04 Temperature 97.7 F 98.0 F Pulse Rate 66 82 Respiratory 26 14 Rate Blood Pressure 127/58 (mmHg) O2 Sat by Pulse 98 96 Oximetry 01/18/18 07:15 Temperature Pulse Rate Respiratory 28 Rate Blood Pressure (mmHg) O2 Sat by Pulse Oximetry Oxygen Devices in Use Now: Nasal Cannula - 2L Appearance: Sitting up eating breakfast, NAD Eyes: No Scleral Icterus, PERRLA Ears/Nose/Mouth/Throat: NL Teeth, Lips, Gums, Clear Oropharnyx Neck: NL Appearance and Movements; NL JVP, Trachea Midline Respiratory: Symmetrical Chest Expansion and Respiratory Effort, - - rales b/l up /2, no wheeze Cardiovascular: RRR Abdominal: - - soft, TTP throughout, ND, +BS Lymphatic: No Cervical Adenopathy Extremities: No Edema, No Clubbing, Cyanosis Skin: No Rash or Ulcers Neurological: Alert and Oriented x 3 Result Diagrams: 01/18/18 06:35 01/18/18 06:35 Assess/Plan/Problems-Billing Assessment: 77 yo M h/o COPD with chronic respiratory failure on 2L O2 recent COPD exacerbation in December s/p steroids/doxycycline p/w fever, tachypnea, leukocytosis found with sepsis 2/2 [facility] PNA - Patient Problems (1) Sepsis Comment: leukocytosis, tachypnea, tachycardia, fever Secondary to MARIANELA PNA CTX and azithromycin Prednisone decreased from 60 to 40 PO Now Resolved - stop IVF (01/18) blood cultures received (2) Left upper lobe pneumonia Comment: CTX, azithro, prednisone flutter valve sputum collection and culture today (s/p abx initiation) (3) COPD (chronic obstructive pulmonary disease) Comment: with chronic respiratory failure 2L at home Not in exacerbation c/w dulera, monteleukast (4) DVT prophylaxis Comment: HSQ
[2018-01-18] MEDS ORDERED: predniSONE TAB* 20 MG PO SCH ×2 (09:00)
[2018-01-18] MEDS: cefTRIAXone VIAL(*) 1,000 MG in NS 0.9% 50 ML* 50 ML IVPB SCH (09:01)
[2018-01-18] MEDS: Azithromycin TAB* 250 MG PO SCH (09:02)
[2018-01-18] MEDS: Montelukast Sodium TAB* 10 MG PO SCH (09:02)
[2018-01-18] MEDS: Tamsulosin CAP* 0.4 MG PO SCH (09:02)
[2018-01-18] MEDS ORDERED: Polyethylene Glycol 3350* 17 GM PACKET PO PRN (14:31)
[2018-01-18] MEDS: traMADol TAB* 50 MG PO PRN (21:13)
[2018-01-18] MEDS: Melatonin 3 MG TAB PO SCH (21:14)
[2018-01-19] MEDS: Heparin VIAL(*) 5000 UNITS/ML VIAL (FIVE THOUSAND) SUBCUT SCH ×3 (06:13→21:16)
[2018-01-19 06:36] LABS: Hematocrit 34 % (42-52); Hemoglobin 11.6 g/dl (14.0-18.0); Mean Corpuscular HGB Conc 34 g/dl (31-36); Mean Corpuscular Hemoglobin 31 pg (27-31); Mean Corpuscular Volume 91 fL (80-94); Mean Platelet Volume 10.3 um3 (7.4-10.4); Platelet Count 200 10^3/ul (150-450); Red Blood Count 3.71 10^6/ul (4.00-5.40); Red Cell Distribution Width 13 % (10.5-15); White Blood Count 23.3 10^3/ul (3.5-10.8)
[2018-01-19 06:42] LABS: ABS Basophils 0.1 10^3/ul (0-0.2); ABS Eosinophils 0 10^3/ul (0-0.6); ABS Lymphocytes 1.7 10^3/ul (1.0-4.8); ABS Monocytes 1.9 10^3/ul (0-0.8); ABS Neutrophils 19.7 10^3/ul (1.5-7.7); ABS Nucleated RBC 0 10^3/ul; Eosinophil % 0 % (0-6); Lymphocyte % 7.2 % (25-47); Nucleated Red Blood Cells % 0.1
[2018-01-19] MEDS: Albuterol/Ipratropium NEB.SOL* Albuterol 2.5 MG/Ipratropium 0.5 MG 3 ML INH SCH (07:40)
[2018-01-19] MEDS: Mometasone/Formoter 200/5 MDI INH SCH ×2 (07:43→19:28)
[2018-01-19] MEDS: cefTRIAXone VIAL(*) 1,000 MG in NS 0.9% 50 ML* 50 ML IVPB SCH (08:50)
[2018-01-19] MEDS: Tamsulosin CAP* 0.4 MG PO SCH (08:51)
[2018-01-19] MEDS: Montelukast Sodium TAB* 10 MG PO SCH (08:51)
[2018-01-19] MEDS: Azithromycin TAB* 250 MG PO SCH (08:51)
[2018-01-19] MEDS: predniSONE TAB* 20 MG PO SCH (08:51)
--- NOTE | 2018-01-19 09:28 | PN ---
Subjective Date of Service: 01/19/18 Interval History: Pain in right shoulder. Improved with heat pack on admission but not last night Feels "crappy" but cannot identify predominant complaints No diarrhea, nausea, SOB, CP +productive cough, flutter valve is helping produce sputum Objective Active Medications: Acetaminophen (Tylenol Tab*) 650 mg PO Q6H PRN PRN Reason: pain/fever Last Admin: 01/17/18 21:16 Dose: 650 mg Albuterol/Ipratropium (Duoneb (Albuterol 2.5 Mg/Ipratropium 0.5 Mg)) 1 neb INH Q4H PRN PRN Reason: SOB/WHEEZING Last Admin: 01/17/18 13:18 Dose: 1 neb Azithromycin (Zithromax Tab*) 250 mg PO DAILY [facility] Last Admin: 01/19/18 08:51 Dose: 250 mg Heparin Sodium (Porcine) (Heparin Vial(*)) 5,000 units SUBCUT Q8HR [facility] Last Admin: 01/19/18 06:13 Dose: 5,000 units Ceftriaxone Sodium 1,000 mg/ (Sodium Chloride) 50 mls @ 200 mls/hr IVPB Q24H [facility] Last Admin: 01/19/18 08:50 Dose: 200 mls/hr Lidocaine (Lidoderm 5% Patch*) 1 patch TRANSDERM .SEE ORDER [facility] Melatonin (Melatonin) 3 mg PO BEDTIME [facility] Last Admin: 01/18/18 21:14 Dose: 3 mg Mometasone Furoate/Formoterol Fumar (Dulera 200/5 Mdi*) 1 puff INH BID [facility] Last Admin: 01/19/18 07:43 Dose: 1 puff Montelukast Sodium (Singulair Tab*) 10 mg PO DAILY [facility] Last Admin: 01/19/18 08:51 Dose: 10 mg Pharmacy Profile Note (Lidocaine Patch Remove*) 1 note PATCH OFF 2100 [facility] Polyethylene Glycol/Electrolytes (Miralax*) 17 gm PO DAILY PRN PRN Reason: CONSTIPATION Prednisone (Deltasone Tab*) 40 mg PO DAILY [facility] Last Admin: 01/19/18 08:51 Dose: 40 mg Tamsulosin HCl (Flomax Cap*) 0.4 mg PO DAILY [facility] Last Admin: 01/19/18 08:51 Dose: 0.4 mg Tramadol HCl (Ultram*) 50 mg PO Q6H PRN PRN Reason: PAIN Last Admin: 01/18/18 21:13 Dose: 50 mg Vital Signs - 8 hr 01/19/18 01/19/18 02:33 07:50 Temperature 98.2 F Pulse Rate 71 76 Respiratory 18 16 Rate Blood Pressure 149/54 (mmHg) O2 Sat by Pulse 97 96 Oximetry Oxygen Devices in Use Now: Nasal Cannula - 2l Appearance: sittin gup in bed with breakfast, NAD Eyes: No Scleral Icterus, PERRLA Ears/Nose/Mouth/Throat: NL Teeth, Lips, Gums, Clear Oropharnyx Neck: NL Appearance and Movements; NL JVP, Trachea Midline Respiratory: Symmetrical Chest Expansion and Respiratory Effort, - - left mid to apex with vesicular lung sounds, end expiratory wheezes throughout worse on right Cardiovascular: NL Sounds; No Murmurs; No JVD, RRR Abdominal: - - immediate flinch and retraction to palpation throughout entire abdomen but can push quite hard if keep hand placed and continue to push after initial patient withdrawal. Negative murphys Lymphatic: No Cervical Adenopathy Extremities: No Edema, No Clubbing, Cyanosis Skin: No Rash or Ulcers Neurological: Alert and Oriented x 3 Result Diagrams: 01/19/18 06:13 01/19/18 06:13 Microbiology and Other Data: Microbiology 01/18/18 13:25 Gram Stain - Final Sputum 01/17/18 11:27 Aerobic Blood Culture - Preliminary Blood Venous No Growth Day 1 Anaerobic Blood Culture - Preliminary No Growth Day 1 01/17/18 11:29 Aerobic Blood Culture - Preliminary Blood Venous No Growth Day 1 Anaerobic Blood Culture - Preliminary No Growth Day 1 01/18/18 10:00 Gram Stain - Final Sputum Expectorated Assess/Plan/Problems-Billing Assessment: 77 yo M h/o COPD with chronic respiratory failure on 2L O2 recent COPD exacerbation in December s/p steroids/doxycycline p/w fever, tachypnea, leukocytosis found with sepsis 2/2 [facility] PNA - Patient Problems (1) Shoulder pain Comment: Check Xray add lidocaine patch encourage acetaminophen (2) Sepsis Comment: leukocytosis, tachypnea, tachycardia, fever Secondary to [facility] PNA CTX and azithromycin Prednisone decreased from 60 to 40 PO Sepsis Now Resolved - stopped IVF (01/18) blood cultures NGTD Sputum cx pending (3) Left upper lobe pneumonia Comment: CTX, azithro, prednisone flutter valve sputum collection and culture today (s/p abx initiation) 01/18 (4) COPD (chronic obstructive pulmonary disease) Comment: with chronic respiratory failure 2L at home Not in exacerbation c/w dulera, monteleukast steroid taper (5) DVT prophylaxis Comment: HSQ
[2018-01-19] MEDS: Acetaminophen TAB* 325 MG PO PRN (09:35)
[2018-01-19] MEDS ORDERED: Lidocaine PATCH 5%* 1 PATCH TRANSDERM SCH (10:00)
[2018-01-19] MEDS: Lidocaine PATCH 5%* 1 PATCH TRANSDERM SCH (10:12)
--- NOTE | 2018-01-19 11:22 | RAD ---
INDICATION: New onset shoulder pain with abduction COMPARISON: Similar x-ray dated March 30, 2017 TECHNIQUE: 3 views of the right shoulder were obtained. FINDINGS: The adequately corticated bones are in normal alignment. Degenerative changes of the AC joint include joint space narrowing and marginal osteophyte formation. No fracture, dislocation or focal bony abnormality is seen. IMPRESSION: DEGENERATIVE CHANGES DESCRIBED ABOVE WITHOUT RADIOGRAPHICALLY APPARENT ACUTE ABNORMALITY. If the patient's symptoms persist, follow-up imaging is recommended.
[2018-01-19] MEDS: traMADol TAB* 50 MG PO PRN ×2 (11:27→21:15)
[2018-01-19] MEDS: Albuterol/Ipratropium NEB.SOL* Albuterol 2.5 MG/Ipratropium 0.5 MG 3 ML INH PRN (19:28)
[2018-01-19] MEDS: Lidocaine Patch REMOVE* 1 NOTE MISC PATCH OFF SCH (21:00)
[2018-01-19] MEDS: Melatonin 3 MG TAB PO SCH (21:15)
[2018-01-20] MEDS: Heparin VIAL(*) 5000 UNITS/ML VIAL (FIVE THOUSAND) SUBCUT SCH ×3 (06:22→21:19)
[2018-01-20] MEDS: Mometasone/Formoter 200/5 MDI INH SCH ×2 (08:39→20:28)
[2018-01-20] MEDS: predniSONE TAB* 20 MG PO SCH (08:47)
[2018-01-20] MEDS: Montelukast Sodium TAB* 10 MG PO SCH (08:47)
[2018-01-20] MEDS: Tamsulosin CAP* 0.4 MG PO SCH (08:47)
[2018-01-20] MEDS: Azithromycin TAB* 250 MG PO SCH (08:47)
[2018-01-20] MEDS: cefTRIAXone VIAL(*) 1,000 MG in NS 0.9% 50 ML* 50 ML IVPB SCH (08:47)
[2018-01-20] MEDS: Lidocaine PATCH 5%* 1 PATCH TRANSDERM SCH (08:51)
[2018-01-20] MEDS: Albuterol/Ipratropium NEB.SOL* Albuterol 2.5 MG/Ipratropium 0.5 MG 3 ML INH PRN ×3 (10:05→20:37)
--- NOTE | 2018-01-20 15:46 | PN ---
Subjective Date of Service: 01/20/18 Interval History: Patient complains of severe SOB with exertion of walking to the bathroom which is significantly decreased from his baseline. Denies CP, N/V, abdominal pain, F/ C, diarrhea, or other pain. Shoulder pain eliminated by lidocaine patch. Does not feel comfortable functioning at home with current level of SOB. Still producing large amount of sputum without hemoptysis. Family History: Unchanged from Admission Social History: Unchanged from Admission Past Medical History: Unchanged from Admission Objective Active Medications: Acetaminophen (Tylenol Tab*) 650 mg PO Q6H PRN PRN Reason: pain/fever Last Admin: 01/19/18 09:35 Dose: 650 mg Albuterol/Ipratropium (Duoneb (Albuterol 2.5 Mg/Ipratropium 0.5 Mg)) 1 neb INH Q4H PRN PRN Reason: SOB/WHEEZING Last Admin: 01/20/18 10:05 Dose: 1 neb Azithromycin (Zithromax Tab*) 250 mg PO DAILY [facility] Last Admin: 01/20/18 08:47 Dose: 250 mg Heparin Sodium (Porcine) (Heparin Vial(*)) 5,000 units SUBCUT Q8HR [facility] Last Admin: 01/20/18 14:45 Dose: 5,000 units Ceftriaxone Sodium 1,000 mg/ (Sodium Chloride) 50 mls @ 200 mls/hr IVPB Q24H [facility] Last Admin: 01/20/18 08:47 Dose: 200 mls/hr Lidocaine (Lidoderm 5% Patch*) 1 patch TRANSDERM DAILY [facility] Last Admin: 01/20/18 08:51 Dose: 1 patch Melatonin (Melatonin) 3 mg PO BEDTIME [facility] Last Admin: 01/19/18 21:15 Dose: 3 mg Mometasone Furoate/Formoterol Fumar (Dulera 200/5 Mdi*) 1 puff INH BID [facility] Last Admin: 01/20/18 08:39 Dose: 1 puff Montelukast Sodium (Singulair Tab*) 10 mg PO DAILY [facility] Last Admin: 01/20/18 08:47 Dose: 10 mg Pharmacy Profile Note (Lidocaine Patch Remove*) 1 note PATCH OFF 2100 [facility] Last Admin: 01/19/18 21:00 Dose: 1 note Polyethylene Glycol/Electrolytes (Miralax*) 17 gm PO DAILY PRN PRN Reason: CONSTIPATION Prednisone (Deltasone Tab*) 40 mg PO DAILY [facility] Last Admin: 01/20/18 08:47 Dose: 40 mg Tamsulosin HCl (Flomax Cap*) 0.4 mg PO DAILY [facility] Last Admin: 01/20/18 08:47 Dose: 0.4 mg Tramadol HCl (Ultram*) 50 mg PO Q6H PRN PRN Reason: PAIN Last Admin: 01/19/18 21:15 Dose: 50 mg Vital Signs - 8 hr 01/20/18 01/20/18 01/20/18 08:00 08:41 10:09 Pulse Rate 68 87 Respiratory 16 20 16 Rate O2 Sat by Pulse 98 98 97 Oximetry Oxygen Devices in Use Now: Nasal Cannula Appearance: Patient is a 77yo male who appears stated age and is sitting in the bed with significantly increased work of breathing. Eyes: No Scleral Icterus, PERRLA Ears/Nose/Mouth/Throat: NL Teeth, Lips, Gums, Clear Oropharnyx, Mucous Membranes Moist, - - Right ear partially removed. Neck: NL Appearance and Movements; NL JVP, Trachea Midline Respiratory: Symmetrical Chest Expansion and Respiratory Effort, - - Diminished , Mild expiratory wheezes. Cardiovascular: NL Sounds; No Murmurs; No JVD, RRR, No Edema Abdominal: NL Sounds; No Tenderness; No Distention, No Hepatosplenomegaly Lymphatic: No Cervical Adenopathy Extremities: No Edema, No Clubbing, Cyanosis Skin: No Rash or Ulcers, No Nodules or Sclerosis Neurological: Alert and Oriented x 3, NL Sensation, NL Gait, NL Muscle Strength and Tone, - - CN II-XII intact. Result Diagrams: 01/19/18 06:13 01/19/18 06:13 Microbiology and Other Data: Microbiology 01/18/18 13:25 Gram Stain - Final Sputum 01/17/18 11:27 Aerobic Blood Culture - Preliminary Blood Venous No Growth Day 1 Anaerobic Blood Culture - Preliminary No Growth Day 1 01/17/18 11:29 Aerobic Blood Culture - Preliminary Blood Venous No Growth Day 1 Anaerobic Blood Culture - Preliminary No Growth Day 1 01/18/18 10:00 Gram Stain - Final Sputum Expectorated Assess/Plan/Problems-Billing Assessment: 77 yo M h/o COPD with chronic respiratory failure on 2L O2 recent COPD exacerbation in December s/p steroids/doxycycline p/w fever, tachypnea, leukocytosis found with sepsis 2/2 [facility] PNA which is improving. Back on home level of oxygen but still severely SOB with exertion. - Patient Problems (1) Sepsis Current Visit: Yes Status: Acute Comment: Resolved. Leukocytosis, tachypnea, tachycardia, fever Secondary to MARIANELA PNA Ceftriaxone and Azithromycin for CAP. Prednisone 40mg PO Blood cultures No Growth To Date Sputum cultures shows normal yulissa. (2) Left upper lobe pneumonia Current Visit: Yes Status: Acute Code(s): J18.1 - LOBAR PNEUMONIA, UNSPECIFIED ORGANISM SNOMED Code(s): 039229173 Comment: Acute on Chonric Respiratory Failure, Resolved. Ceftriaxone, azithro, prednisone Flutter valve Improving, still severely SOB with Exertion. (3) COPD (chronic obstructive pulmonary disease) Current Visit: Yes Status: Acute Code(s): J44.9 - CHRONIC OBSTRUCTIVE PULMONARY DISEASE, UNSPECIFIED SNOMED Code(s): 83540903 Comment: With chronic respiratory failure 2L at home Not in exacerbation Continue with dulera, monteleukast Steroid taper PRN duoneb. (4) Shoulder pain Current Visit: Yes Status: Acute Code(s): M25.519 - PAIN IN UNSPECIFIED SHOULDER SNOMED Code(s): 50604343 Comment: Xray negative, Resolved with Lidcaine patch and tylenol. (5) DVT prophylaxis Current Visit: Yes Status: Acute Code(s): YAW6150 - SNOMED Code(s): 550991849 Comment: HSQ (6) DNR (do not resuscitate) Current Visit: Yes Status: Acute Status and Disposition: Inpatient, Hopeful discharge tomorrow.
[2018-01-20] MEDS: Lidocaine Patch REMOVE* 1 NOTE MISC PATCH OFF SCH (21:19)
[2018-01-20] MEDS: Melatonin 3 MG TAB PO SCH (21:19)
[2018-01-21] MEDS: Heparin VIAL(*) 5000 UNITS/ML VIAL (FIVE THOUSAND) SUBCUT SCH (05:55)
[2018-01-21 07:09] LABS: ABS Basophils 0.1 10^3/ul (0-0.2); ABS Eosinophils 0 10^3/ul (0-0.6); ABS Lymphocytes 1.8 10^3/ul (1.0-4.8); ABS Monocytes 0.9 10^3/ul (0-0.8); ABS Neutrophils 7.3 10^3/ul (1.5-7.7); ABS Nucleated RBC 0 10^3/ul; Eosinophil % 0.1 % (0-6); Hematocrit 36 % (42-52); Hemoglobin 12.3 g/dl (14.0-18.0); Lymphocyte % 17.9 % (25-47); Mean Corpuscular HGB Conc 34 g/dl (31-36); Mean Corpuscular Hemoglobin 31 pg (27-31); Mean Corpuscular Volume 92 fL (80-94); Mean Platelet Volume 10.1 um3 (7.4-10.4); Nucleated Red Blood Cells % 0.1; Platelet Count 217 10^3/ul (150-450); Red Blood Count 3.96 10^6/ul (4.00-5.40); Red Cell Distribution Width 13 % (10.5-15); White Blood Count 10.1 10^3/ul (3.5-10.8)
[2018-01-21 07:27] LABS: EGFR Non-African American 91.3 (>60)
[2018-01-21] MEDS: Mometasone/Formoter 200/5 MDI INH SCH (08:14)
[2018-01-21] MEDS: Albuterol/Ipratropium NEB.SOL* Albuterol 2.5 MG/Ipratropium 0.5 MG 3 ML INH PRN (08:14)
[2018-01-21] MEDS: cefTRIAXone VIAL(*) 1,000 MG in NS 0.9% 50 ML* 50 ML IVPB SCH (08:36)
[2018-01-21] MEDS: Lidocaine PATCH 5%* 1 PATCH TRANSDERM SCH (08:38)
[2018-01-21] MEDS: Montelukast Sodium TAB* 10 MG PO SCH (08:38)
[2018-01-21] MEDS: Azithromycin TAB* 250 MG PO SCH (08:38)
[2018-01-21] MEDS: Tamsulosin CAP* 0.4 MG PO SCH (08:38)
[2018-01-21] MEDS: predniSONE TAB* 20 MG PO SCH (08:38)
[2018-01-21 11:53] VITALS: BP 144/50
--- NOTE | 2018-01-22 11:17 | DS ---
CC: Dr. Duncan * DISCHARGE SUMMARY: DATE OF ADMISSION: 01/17/18 DATE OF DISCHARGE: 01/21/18 PRIMARY CARE PROVIDER: Dr. Duncan. MY ATTENDING WHILE IN THE HOSPITAL: Dr. Noy Banda.* (DICTATED BY CARMINA OROZCO) PRIMARY DISCHARGE DIAGNOSES: Community-acquired pneumonia, chronic obstructive pulmonary disease with chronic respiratory failure, on 2 L of oxygen. SECONDARY DISCHARGE DIAGNOSES: 1. Depression. 2. Benign prostatic hypertrophy. 3. History of Clostridium difficile colitis, status post fecal transplant. STUDIES DONE WHILE IN THE HOSPITAL: 1. Chest x-ray from 01/17/18, read as suggestion of left upper lobe pneumonia. 2. Electrocardiogram from 01/17/18, read as sinus tachycardia, wandering baseline, T-wave inversion in aVL. No ST segment abnormalities. Poor quality study, rate of 128, QTc of 467. 3. Shoulder x-ray from 01/19/18, read as degenerative changes as described above without radiographic apparent acute abnormality, degenerative changes including AC joint narrowing and marginal osteophyte formation. MEDICATIONS AT DISCHARGE: 1. Tamsulosin 0.4 mg p.o. daily. 2. Montelukast 10 mg p.o. daily. 3. Advair 500/50 one puff inhalation b.i.d. 4. Albuterol 2 puffs inhalation q.6 hours as needed. 5. Tylenol 650 mg p.o. q.6 hours as needed. 6. DuoNeb 1 nebulized inhalation q.4 hours as needed. 7. Cefpodoxime 200 mg p.o. b.i.d. x4. 8. Lidocaine patch 1 patch transdermal daily x7. 9. Melatonin 3 mg p.o. at bedtime. New medications at discharge: 1. Tylenol. 2. DuoNeb. 3. Cefpodoxime. 4. Lidocaine. 5. Melatonin. Medications discontinued on discharge: None. HOSPITAL COURSE: This is a brief summary of the patient's presentation. For more details, please see the history and physical from Cyndie Fall NP on . In brief, the patient is a 77-year-old male with a past medical history significant for the above, who presented to the emergency department with rapid onset of chills and shortness of breath on the morning of admission. He was in his normal state of health the day before except for possibly chills in the evening. When he woke up on the day of admission, he had shaking chills associated with severe shortness of breath. He took nebulizer treatment, which did not help. He presented to the emergency room, was found to have a fever, tachycardia, increased oxygen demand, needing 6 L of oxygen, white blood cell count, tachypnea and tachycardia. The patient was started on ceftriaxone, azithromycin for community-acquired pneumonia, was given methylprednisolone for severe community-acquired pneumonia in a patient with COPD, but the patient was not wheezing at the time of evaluation. The patient was started on DuoNeb as needed and continued on his home inhalers. The patient had a productive cough without hemoptysis. The patient also had abdominal pain, which resolved spontaneously without intervention during the course of his hospitalization. The patient improved overnight from 01/17/18 to 01/18/18 with decreased shortness of breath, but still severe shortness of breath, particularly with activity. The patient had an episode of right shoulder pain, which improved with warm compress. The patient continued to be fatigued. The patient was continued on prednisone, antibiotics as above. The patient had a sputum sample , but was able to wean down to his home dose of oxygen. The patient had no additional temperature elevations. The patient's tachycardia resolved. The patient initially had a white blood cell count of 18.5, which increased to 31 on the second day of his hospitalization likely due to steroid initiation. The patient had no other significant laboratory abnormalities. The patient continued to gradually improve over the course of his hospitalization. The patient had a shoulder x-ray for persistent shoulder pain, which did not show any abnormalities except for degenerative changes as above. The patient was medicated with tramadol as well as was given a lidocaine patch, which entirely eliminated his pain. The patient's sputum culture grew nothing. The patient's blood cultures grew nothing. The patient was still significantly short of breath on exertion on 01/20/18, which improved with DuoNeb administration. The patient continued to improve on 01/21/18, and felt stable and amenable for discharge to home with the help of his ex- with whom he is close. PHYSICAL EXAMINATION ON THE DAY OF DISCHARGE: General: The patient is a 77- year- old male who appears stated age and sitting comfortably in bed, in no acute distress. Vital Signs: At the time of discharge, temperature 97.9, pulse rate 82, respiratory rate 22, oxygen saturation 96% on 2 L, blood pressure 144/50. HEENT: Head: Normocephalic, atraumatic. Large area of skin excision on the right jain with a large area of ear removed on the right side. Oral mucosa moist. Nasal mucosa moist. No pharyngeal erythema, discharge or exudate. Neck: Supple, nontender. No lymphadenopathy. No carotid bruit auscultated. No JVD. Cardiac: Regular rate and rhythm. No clicks, murmurs, gallops or rubs. Pulses are 2+ bilaterally in dorsalis pedis, posterior tibialis, and radial areas. Respiratory: Clear to auscultation bilaterally. No wheezes, rales or rhonchi. Good air exchange bilaterally. Abdomen: Soft, nontender, nondistended. Bowel sounds present. Normoactive in all 4 quadrants. No hepatosplenomegaly. No abdominal bruits auscultated. No hepatojugular reflux. Genitourinary: No suprapubic or CVA tenderness. Skin: Clean, dry, intact. No rash. Neuro: Cranial nerves II through XII intact. No focal deficits. Alert and oriented x3. Psychiatric: Pleasant and cooperative. LABORATORY DATA: On the day of discharge, white blood cell count 10.1, hemoglobin 12.3, platelet count 217. Sodium 141, potassium 4.3, chloride 103, carbon dioxide 31, anion gap 7, BUN 20, creatinine 0.82, glucose 92, magnesium 1.9, calcium 9.0. DISCHARGE PLAN: The patient will be discharged to home. The patient should continue with nebulizers as he has been as well as his daily inhalers and Singulair. The patient will be continued on 2 more days of cefpodoxime in addition to 5 days of ceftriaxone and 5 days of azithromycin while in the hospital. The patient finished a 5-day course of steroids. The patient should continue with oxygen at his home level. The patient should be staying with his ex- initially when he goes home who will provide him with care needs while he recuperates. The patient should use his nebulizers as needed with the DuoNeb nebulized solution. The patient should follow up with his primary care provider in 1 week for general medical management to ensure continued improvement from his pneumonia. The patient should follow up with Pulmonology as scheduled. The patient should return to the hospital for alarming symptoms such as severe shortness of breath, chest pain, or severe abdominal pain and diarrhea. The patient should continue with lidocaine patches as prescribed. It has been discussed with the patient that they may be expensive, not covered by insurance and that they are available [id number] in a slightly less potent form, which he should trial. TIME SPENT: Approximately 60 minutes were spent on this discharge, 30 of which were spent in [id number] with the patient obtaining history and physical and discussing treatment plan. CARMINA OROZCO [id number]/[facility] #: [id number] YAMINI
== END 2018-01-21 11:30 | disposition home or self-care (01) | DRG 871 ==
LOC: ED 10:51 → MED 13:00 → OBSVTOIN 01-18 08:57
PROVIDERS: ADMIT Internal Medicine; ATTEND Hospitalist
DX: A41.9 Sepsis, unspecified organism (principal); J18.9 Pneumonia, unspecified organism; J44.0 Chronic obstructive pulmonary disease with (acute) lower respiratory infection; J96.10 Chronic respiratory failure, unspecified whether with hypoxia or hypercapnia; I48.91 Unspecified atrial fibrillation; J44.9 Chronic obstructive pulmonary disease, unspecified; N40.0 Benign prostatic hyperplasia without lower urinary tract symptoms; F32.9 Major depressive disorder, single episode, unspecified; F41.9 Anxiety disorder, unspecified; R10.9 Unspecified abdominal pain; Z66 Do not resuscitate; H91.90 Unspecified hearing loss, unspecified ear; M25.511 Pain in right shoulder; Z98.1 Arthrodesis status; Z86.19 Personal history of other infectious and parasitic diseases; Z72.89 Other problems related to lifestyle; Z79.51 Long term (current) use of inhaled steroids; Z87.891 Personal history of nicotine dependence; Z99.81 Dependence on supplemental oxygen; Z85.828 Personal history of other malignant neoplasm of skin; Z82.49 Family history of ischemic heart disease and other diseases of the circulatory system; Z82.61 Family history of arthritis; Z82.0 Family history of epilepsy and other diseases of the nervous system
CPT/HCPCS: 36415; 71045; 80048; 80053; 81003; 83605; 83735; 84484; 85025; 85610; 85730; 86140; 87040; 87070; 87077; 87205; 93005; 94640; 99284; A9270-GY; G0378; J0692; J0696; J1644; J2930; J7512